=== PATIENT | male | born 1965 ===

== ENCOUNTER 2018-12-17 12:46 | Observation (INO) | payer OTHER ==
[2018-12-17] MEDS ORDERED: Sodium Chloride 0.9% 2.5 ML Syringe FLUSH PRN (13:02)
[2018-12-17] MEDS ORDERED: Sodium Chloride 0.9% 10 ML Syringe FLUSH PRN (13:02)
--- NOTE | 2018-12-17 13:09 | EDM.PDOC ---
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 Patient denies numbness weakness incontinence or retention of bowel or bladder patient does has history of hypertension and states he has had back problems since his youth but has been pretty stable over last several years Review of systems: As per history of present illness and below otherwise all systems reviewed and negative. Past medical history: As per history of present illness and as reviewed below otherwise noncontributory. Surgical history: As per history of present illness and as reviewed below otherwise noncontributory. Social history: No reported history of drug or alcohol abuse. Family history: As per history of present illness and as reviewed below otherwise noncontributory. Physical exam: HEENT: Atraumatic, normocephalic, pupils reactive, negative for conjunctival pallor or scleral icterus, mucous membranes moist, throat clear, neck supple, nontender, trachea midline. Lungs: Clear to auscultation, breath sounds equal bilaterally, chest nontender. Heart: S1S2, regular, negative for clicks, rubs, or JVD. Abdomen: Soft, nondistended, nontender. Negative for masses or hepatosplenomegaly. Negative for costovertebral tenderness. Pelvis: Stable nontender. Genitourinary: Deferred. Rectal: Deferred. Extremities: Atraumatic, negative for cords or calf pain. Neurovascular unremarkable. Neuro: Awake, alert, oriented. Cranial nerves II through XII unremarkable. Cerebellum unremarkable. Motor and sensory unremarkable throughout. Exam nonfocal. Back: Patient has no vertebral body tenderness some mild paravertebral tenderness at the level of lumbar spine motor and sensory are normal Diagnostics: CBC CMP troponin PT/INR UA EKG CT chest abdomen pelvis with thoracic and lumbar reconstruction Therapeutics: IV O2 monitor Impression: #1 dizziness #2 back pain #3 bigeminy #4hypertension Definitive disposition and diagnosis as appropriate pending reevaluation and review of above. low back Pain Score (Numeric/FACES): 9 - Related Data Allergies Allergy/AdvReac Type Severity Reaction Status Date / Time sulfamethoxazole Allergy Airway Verified 12/17/18 13:02 [From ] Tightness trimethoprim [From ] Allergy Airway Verified 12/17/18 13:02 Tightness Home Meds: Home Meds Adalimumab [Humira] 1 injection SQ ASDIRECTED 12/17/18 [History] Albuterol [Ventolin HFA] 2 puff INH ASDIRECTED PRN 12/17/18 [History] Felodipine [Felodipine ER] 10 mg PO DAILY 12/17/18 [History] Folic Acid 1 mg PO DAILY 12/17/18 [History] Ibuprofen [Ibu] 800 mg PO ASDIRECTED PRN 12/17/18 [History] Lisinopril 20 mg PO DAILY 12/17/18 [History] Methotrexate 8 tab PO WEEKLY 12/17/18 [History] Ranitidine HCl [Ranitidine] 150 mg PO BID 12/17/18 [History] metFORMIN HCl [Metformin HCl ER] 2 tab PO BID 12/17/18 [History] ED ROS GENERAL - Review of Systems Review Of Systems: ROS reveals no pertinent complaints other than HPI. ED EXAM, GENERAL - Physical Exam Exam: See Below (See dictation) Course - Vital Signs Last Recorded V/S: Last Vital Signs Temp 36.1 C 12/17/18 12:52 Pulse 67 12/17/18 16:35 Resp 18 12/17/18 16:35 BP 159/102 H 12/17/18 14:21 Pulse Ox 95 12/17/18 16:35 - Orders/Labs/Meds Orders: Active Orders 24 hr Category Date Time Status Cardiac Monitoring [RC] . DIRECTED Care 12/17/18 13:02 Active EKG 12 Lead [EKG Documentation Completion] [RC] STAT Care 12/17/18 16:28 Active EKG Documentation Completion [RC] STAT Care 12/17/18 13:02 Active Oxygen Therapy, ED [RC] ASDIRECTED Care 12/17/18 13:02 Active Pulse Oximetry [RC] ASDIRECTED Care 12/17/18 13:02 Active Sodium Chloride 0.9% [Saline Flush] Med 12/17/18 13:02 Active 10 ml FLUSH ASDIRECTED PRN Sodium Chloride 0.9% [Saline Flush] Med 12/17/18 13:02 Active 2.5 ml FLUSH ASDIRECTED PRN Saline Lock Insert [OM.PC] Stat Oth 12/17/18 13:02 Ordered Medication Orders Sodium Chloride (Saline Flush) 10 ml FLUSH ASDIRECTED PRN PRN Reason: Keep Vein Open Last Admin: 12/17/18 14:13 Dose: 10 ml Sodium Chloride (Saline Flush) 2.5 ml FLUSH ASDIRECTED PRN PRN Reason: Keep Vein Open Last Admin: 12/17/18 14:13 Dose: 2.5 ml Labs: Laboratory Tests 12/17/18 12/17/18 12/17/18 Range/Units 13:05 13:05 13:05 WBC 8.56 (4.0-11.0) K/uL RBC 5.10 (4.50-5.90) M/uL Hgb 16.0 (13.0-17.0) g/dL Hct 47.9 (38.0-50.0) % MCV 93.9 (80.0-98.0) fL MCH 31.4 (27.0-32.0) pg MCHC 33.4 (31.0-37.0) g/dL RDW Std Deviation 52.4 (28.0-62.0) fl RDW Coeff of Beau 15 (11.0-15.0) % Plt Count 198 (150-400) K/uL MPV 11.30 (7.40-12.00) fL Neut % (Auto) 68.6 (48.0-80.0) % Lymph % (Auto) 20.1 (16.0-40.0) % [place] % (Auto) 7.6 (0.0-15.0) % Eos % (Auto) 2.8 (0.0-7.0) % Baso % (Auto) 0.9 (0.0-1.5) % Neut # (Auto) 5.9 H (1.4-5.7) K/uL Lymph # (Auto) 1.7 (0.6-2.4) K/uL [place] # (Auto) 0.7 (0.0-0.8) K/uL Eos # (Auto) 0.2 (0.0-0.7) K/uL Baso # (Auto) 0.1 (0.0-0.1) K/uL Nucleated RBC % 0.0 /100WBC Nucleated RBCs # 0 K/uL INR 1.02 Sodium 140 (136-148) mmol/L Potassium 4.0 (3.5-5.1) mmol/L Chloride 104 (98-107) mmol/L Carbon Dioxide 26.3 (21.0-32.0) mmol/L BUN 20 H (7.0-18.0) mg/dL Creatinine 1.3 (0.8-1.3) mg/dL Est Cr Clr Drug Dosing 78.82 mL/min Estimated GFR (MDRD) 57.3 ml/min Glucose 149 H (74-106) mg/dL Calcium 9.3 (8.5-10.1) mg/dL Total Bilirubin 0.6 (0.2-1.0) mg/dL AST 37 (15-37) IU/L ALT 67 H (14-63) IU/L Alkaline Phosphatase 77 (46-116) U/L Troponin I < 0.050 (0.000-0.056) ng/mL Total Protein 8.4 H (6.4-8.2) g/dL Albumin 3.8 (3.4-5.0) g/dL Globulin 4.6 H (2.6-4.0) g/dL Albumin/Globulin Ratio 0.8 L (0.9-1.6) Urine Color Urine Appearance Urine pH (5.0-8.0) Ur Specific [place] (1.001-1.035) Urine Protein (NEGATIVE) mg/dL Urine Glucose (UA) (NEGATIVE) mg/dL Urine Ketones (NEGATIVE) mg/dL Urine Occult Blood (NEGATIVE) Urine Nitrite (NEGATIVE) Urine Bilirubin (NEGATIVE) Urine Urobilinogen (<2.0) EU/dL Ur Leukocyte Esterase (NEGATIVE) Urine RBC (0-2/HPF) Urine WBC (0-5/HPF) Ur Epithelial Cells (NONE-FEW) Urine Bacteria (NEGATIVE) 12/17/18 Range/Units 13:43 WBC (4.0-11.0) K/uL RBC (4.50-5.90) M/uL Hgb (13.0-17.0) g/dL Hct (38.0-50.0) % MCV (80.0-98.0) fL MCH (27.0-32.0) pg MCHC (31.0-37.0) g/dL RDW Std Deviation (28.0-62.0) fl RDW Coeff of Beau (11.0-15.0) % Plt Count (150-400) K/uL MPV (7.40-12.00) fL Neut % (Auto) (48.0-80.0) % Lymph % (Auto) (16.0-40.0) % [place] % (Auto) (0.0-15.0) % Eos % (Auto) (0.0-7.0) % Baso % (Auto) (0.0-1.5) % Neut # (Auto) (1.4-5.7) K/uL Lymph # (Auto) (0.6-2.4) K/uL [place] # (Auto) (0.0-0.8) K/uL Eos # (Auto) (0.0-0.7) K/uL Baso # (Auto) (0.0-0.1) K/uL Nucleated RBC % /100WBC Nucleated RBCs # K/uL INR Sodium (136-148) mmol/L Potassium (3.5-5.1) mmol/L Chloride (98-107) mmol/L Carbon Dioxide (21.0-32.0) mmol/L BUN (7.0-18.0) mg/dL Creatinine (0.8-1.3) mg/dL Est Cr Clr Drug Dosing mL/min Estimated GFR (MDRD) ml/min Glucose (74-106) mg/dL Calcium (8.5-10.1) mg/dL Total Bilirubin (0.2-1.0) mg/dL AST (15-37) IU/L ALT (14-63) IU/L Alkaline Phosphatase (46-116) U/L Troponin I (0.000-0.056) ng/mL Total Protein (6.4-8.2) g/dL Albumin (3.4-5.0) g/dL Globulin (2.6-4.0) g/dL Albumin/Globulin Ratio (0.9-1.6) Urine Color YELLOW Urine Appearance CLEAR Urine pH 6.0 (5.0-8.0) Ur Specific [place] 1.020 (1.001-1.035) Urine Protein 30 H (NEGATIVE) mg/dL Urine Glucose (UA) NEGATIVE (NEGATIVE) mg/dL Urine Ketones NEGATIVE (NEGATIVE) mg/dL Urine Occult Blood MODERATE H (NEGATIVE) Urine Nitrite NEGATIVE (NEGATIVE) Urine Bilirubin NEGATIVE (NEGATIVE) Urine Urobilinogen 0.2 (<2.0) EU/dL Ur Leukocyte Esterase NEGATIVE (NEGATIVE) Urine RBC 2-5 (0-2/HPF) Urine WBC 0-1 (0-5/HPF) Ur Epithelial Cells RARE (NONE-FEW) Urine Bacteria RARE (NEGATIVE) Meds: Medications Generic Name Dose Route Start Last Admin Trade Name Freq PRN Reason Stop Dose Admin Sodium Chloride 10 ml 12/17/18 13:02 12/17/18 14:13 Saline Flush FLUSH 10 ml ASDIRECTED PRN Administration Keep Vein Open Sodium Chloride 2.5 ml 12/17/18 13:02 12/17/18 14:13 Saline Flush FLUSH 2.5 ml ASDIRECTED PRN Administration Keep Vein Open Discontinued Medications Generic Name Dose Route Start Last Admin Trade Name Freq PRN Reason Stop Dose Admin Iopamidol 100 ml 12/17/18 14:21 12/17/18 14:47 Isovue Multipack-370 (76%) IVPUSH 12/17/18 14:22 100 ml ONETIME STA Administration Ketorolac Tromethamine Confirm 12/17/18 16:02 12/17/18 16:08 Toradol Administered 12/17/18 16:03 Not Given Dose 30 mg .ROUTE .STK-MED ONE Ketorolac Tromethamine 30 mg 12/17/18 16:04 12/17/18 16:07 Toradol IVPUSH 12/17/18 16:05 30 mg ONETIME ONE Administration Morphine Sulfate 2 mg 12/17/18 14:00 12/17/18 14:17 Morphine IVPUSH 12/17/18 14:01 2 mg ONETIME ONE Administration Morphine Sulfate 4 mg 12/17/18 15:55 12/17/18 15:59 Morphine IVPUSH 12/17/18 15:56 4 mg ONETIME ONE Administration Morphine Sulfate Confirm 12/17/18 15:55 12/17/18 16:00 Morphine Administered 12/17/18 15:56 Not Given Dose 4 mg .ROUTE .STK-MED ONE Ondansetron HCl 4 mg 12/17/18 14:00 12/17/18 14:13 Zofran IVPUSH 12/17/18 14:01 4 mg ONETIME ONE Administration Departure - Departure Time of Disposition: 16:42 Disposition: Refer to Observation Condition: Good Clinical Impression: Dizziness, Back pain, Bigeminy, History of hypertension - Discharge Information Referrals: PCP,Not In Area [Primary Care Provider] - Forms: ED Department Discharge - My Orders Last 24 Hours: My Active Orders 12/17/18 13:02 Cardiac Monitoring [RC] . DIRECTED EKG Documentation Completion [RC] STAT Oxygen Therapy, ED [RC] ASDIRECTED Pulse Oximetry [RC] ASDIRECTED Sodium Chloride 0.9% [Saline Flush] 10 ml FLUSH ASDIRECTED PRN Sodium Chloride 0.9% [Saline Flush] 2.5 ml FLUSH ASDIRECTED PRN Saline Lock Insert [OM.PC] Stat 12/17/18 16:28 EKG 12 Lead [EKG Documentation Completion] [RC] STAT - Assessment/Plan Last 24 Hours: My Active Orders 12/17/18 13:02 Cardiac Monitoring [RC] . DIRECTED EKG Documentation Completion [RC] STAT Oxygen Therapy, ED [RC] ASDIRECTED Pulse Oximetry [RC] ASDIRECTED Sodium Chloride 0.9% [Saline Flush] 10 ml FLUSH ASDIRECTED PRN Sodium Chloride 0.9% [Saline Flush] 2.5 ml FLUSH ASDIRECTED PRN Saline Lock Insert [OM.PC] Stat 12/17/18 16:28 EKG 12 Lead [EKG Documentation Completion] [RC] STAT
[2018-12-17] MEDS ORDERED: Morphine 2 MG/ML Syringe IVPUSH ONE (14:00)
[2018-12-17] MEDS ORDERED: Ondansetron 4 MG/2 ML SDV IVPUSH ONE (14:00)
[2018-12-17 14:03] LABS: BLOOD UREA NITROGEN,BUN 20 mg/dL (7.0-18.0); CARBON DIOXIDE,CO2 26.3 mmol/L (21.0-32.0); CHLORIDE,CL 104 mmol/L (98-107); GLUCOSE RANDOM 149 mg/dL (74-106); SODIUM,NA 140 mmol/L (136-148)
[2018-12-17] MEDS ORDERED: Iopamidol 755 MG/ML 500 ML Multipack Bottle IVPUSH STA (14:21)
--- NOTE | 2018-12-17 15:48 | CT ---
CT abdomen and pelvis Technique: Multiple axial sections were obtained from above the dome of the diaphragm inferiorly through the pubic symphysis. Intravenous contrast was utilized. No oral contrast has been given. Comparison: No prior CT abdomen or pelvis exam is available. Findings: Visualized lung bases show nothing acute. Fatty infiltration is noted within the liver. Cyst is noted within the right lobe of the liver measuring 2.0 cm. No other focal abnormality is appreciated within the liver. Spleen measures at the upper limits of normal at 13.9 cm. Adrenal glands show no nodule. Pancreas shows no discrete abnormality. Gallbladder contains no calcified gallstones. Cysts noted within both kidneys, more numerous on the left side. Largest cyst on the left side measures 5.8 cm. Cyst on the right side measures 2.9 cm. Aorta shows no aneurysmal with mild atherosclerotic calcification. Atherosclerotic calcification continues into the iliac vessels. No retroperitoneal adenopathy or mesenteric abnormalities are seen. No pelvic mass or adenopathy is seen. No free fluid or inflammatory change is seen. Impression: 1. Fatty infiltration within the liver. Incidental liver cyst as well as renal cysts. 2. Spleen size at the upper limits of normal. 3. Nothing acute is appreciated on CT study of the abdomen and pelvis. Diagnostic code #2 MTDD
--- NOTE | 2018-12-17 15:49 | CT ---
CT chest Technique: Multiple axial sections through the chest are obtained. Intravenous contrast was utilized. Comparison: No prior chest x-ray. Findings: Aorta shows no aneurysm. Pulmonary arteries appear within normal limits. Coronary arteries show no abnormal calcifications. Mediastinum and hilar regions show no adenopathy. No pericardial thickening is seen. Lungs are clear with no acute parenchymal change. No pleural effusions or pneumothorax is seen. Scattered degenerative endplate spurring is noted within the spine. No discrete rib fracture is seen. Lateral reconstructed view showing the sternum appear intact. Impression: Nothing acute is appreciated on CT study of the chest. Diagnostic code #1 MTDD
[2018-12-17] MEDS ORDERED: Morphine 4 MG/ML Syringe ONE (15:55)
[2018-12-17] MEDS ORDERED: Morphine 4 MG/ML Syringe IVPUSH ONE (15:55)
--- NOTE | 2018-12-17 15:55 | CT ---
CT lumbar spine Technique: Multiple axial sections through the lumbar spine were obtained. Comparison: No prior lumbar spine imaging. Findings: Vertebral body heights and disc spaces are maintained. Scattered endplate osteophytes are seen. Vertebral bodies and posterior arches are intact with no fracture being seen. Minimal circumferential disc bulge is noted at L3-L4. Disc at L4-L5 has a planar posterior margin. Other disks are maintained. No traumatic disc herniation is seen. No bony central or bony neural foraminal stenosis is seen. Impression: 1. Slight scattered endplate osteophytes. Minimal disc bulging. 2. No acute bony abnormality is seen. No disc herniation is noted. No central canal stenosis or neural foraminal stenosis is seen. Diagnostic code #3 MTDD
--- NOTE | 2018-12-17 15:57 | CT ---
CT thoracic spine Technique: Multiple axial sections were obtained through the thoracic spine. Reconstructed coronal and sagittal images were obtained. Findings: Scattered degenerative endplate spurring is noted. Slight anterior wedge deformities are noted within the lower thoracic spine. These are most likely old as I do not see a definite acute fracture line. No bony central lower bony neural foraminal stenosis is seen. No abnormal subluxation is seen. Impression: 1. Mild anterior wedging of several lower thoracic vertebral bodies which appear to be old as no acute fracture line is seen. 2. Degenerative endplate osteophytes are present throughout the thoracic spine. 3. Nothing acute is appreciated. Diagnostic code #2 MTDD
[2018-12-17] MEDS ORDERED: Ketorolac 30 MG/ML SDV ONE (16:02)
[2018-12-17] MEDS ORDERED: Ketorolac 30 MG/ML SDV IVPUSH ONE (16:04)
[2018-12-17] MEDS ORDERED: Albuterol 8 GM Inhaler INH PRN (17:28)
[2018-12-17] MEDS ORDERED: Ibuprofen 800 MG Tab PO PRN (17:28)
--- NOTE | 2018-12-17 17:35 | PCM.HP.2 ---
H&P History of Present Illness - General Date of Service: 12/17/18 Admit Problem/Dx: Admission Diagnosis/Problem Admission Diagnosis/Problem Dizziness - History of Present Illness Initial Comments - Free Text/Narative: 53 yo male with pmh of DM and rheumatoid arthritis who presents with concerns of lower back pain. The back pain occured when he woke up this morning around 4 am. Patient reported the urge to defecate about every hour and having hard stools. Patient believes his hard stools were due to not drinking as much water yesterday. 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 He reports he was in rougher ride this week which may have contributed to his back pain. He describes his back pain as to the left of his spine. 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 In the ER he was noted to be in bigeminy but then converted to normal sinus. Patient reports a history of a slow arrhythmia which he believes was induced by energy drinks. Two days ago he reported some lightheadedness. He denies any fevers, shortness of breath or chest pain. CT scan of the chest abdomen in the ED were normal. ED provider referred to admission due to report dizziness and history of arrhythmia. low back Pain Score (Numeric/FACES): 9 - Related Data Allergies/Adverse Reactions: Allergies Allergy/AdvReac Type Severity Reaction Status Date / Time sulfamethoxazole Allergy Hives Verified 12/17/18 19:27 [From ] trimethoprim [From ] Allergy Burning Verified 12/17/18 19:27 Home Medications: Home Meds Adalimumab [Humira] 1 injection SQ ASDIRECTED 12/17/18 [History] Albuterol [Ventolin HFA] 2 puff INH ASDIRECTED PRN 12/17/18 [History] Felodipine [Felodipine ER] 10 mg PO DAILY 12/17/18 [History] Folic Acid 1 mg PO DAILY 12/17/18 [History] Ibuprofen [Ibu] 800 mg PO ASDIRECTED PRN 12/17/18 [History] Lisinopril 20 mg PO DAILY 12/17/18 [History] Methotrexate 20 mg PO WE@0800 12/17/18 [History] Ranitidine HCl [Ranitidine] 150 mg PO BID 12/17/18 [History] metFORMIN HCl [Metformin HCl ER] 2 tab PO BID 12/17/18 [History] Past Medical History Cardiovascular History: Reports: Hypertension Respiratory History: Reports: Other (See Below) Other Respiratory History: flare up of SOB with allergies Gastrointestinal History: Reports: GERD Musculoskeletal History: Reports: Back Pain, Chronic Endocrine/Metabolic History: Reports: Diabetes, Type II Other Endocrine/Metabolic History: states he is pre diabetic but does take metformin 1000 bid Other Immunologic History: rheumatoid arthritis - Infectious Disease History Infectious Disease History: Reports: Chicken Pox, Mumps Social & Family History - Tobacco Use Smoking Status *Q: Never Smoker - Caffeine Use Caffeine Use: Reports: Soda - Recreational Drug Use Recreational Drug Use: No H&P Review of Systems - Review of Systems: Review Of Systems: ROS reveals no pertinent complaints other than HPI. Exam - Exam Exam: See Below - Vital Signs Vital Signs: Last Vital Signs Temp 36.1 C 12/17/18 12:52 Pulse 67 12/17/18 16:35 Resp 18 12/17/18 16:35 BP 159/102 H 12/17/18 14:21 Pulse Ox 95 12/17/18 16:35 Weight: 133.7 kg - Exam General: Alert, Oriented Lungs: Clear to Auscultation, Normal Respiratory Effort Cardiovascular: Regular Rate, Regular Rhythm GI/Abdominal Exam: Soft, Non-Tender - Patient Data Lab Results Last 24 hrs: Laboratory Results - last 24 hr 12/17/18 12/17/18 12/17/18 Range/Units 13:05 13:05 13:05 WBC 8.56 (4.0-11.0) K/uL RBC 5.10 (4.50-5.90) M/uL Hgb 16.0 (13.0-17.0) g/dL Hct 47.9 (38.0-50.0) % MCV 93.9 (80.0-98.0) fL MCH 31.4 (27.0-32.0) pg MCHC 33.4 (31.0-37.0) g/dL RDW Std Deviation 52.4 (28.0-62.0) fl RDW Coeff of Beau 15 (11.0-15.0) % Plt Count 198 (150-400) K/uL MPV 11.30 (7.40-12.00) fL Neut % (Auto) 68.6 (48.0-80.0) % Lymph % (Auto) 20.1 (16.0-40.0) % [place] % (Auto) 7.6 (0.0-15.0) % Eos % (Auto) 2.8 (0.0-7.0) % Baso % (Auto) 0.9 (0.0-1.5) % Neut # (Auto) 5.9 H (1.4-5.7) K/uL Lymph # (Auto) 1.7 (0.6-2.4) K/uL [place] # (Auto) 0.7 (0.0-0.8) K/uL Eos # (Auto) 0.2 (0.0-0.7) K/uL Baso # (Auto) 0.1 (0.0-0.1) K/uL Nucleated RBC % 0.0 /100WBC Nucleated RBCs # 0 K/uL INR 1.02 Sodium 140 (136-148) mmol/L Potassium 4.0 (3.5-5.1) mmol/L Chloride 104 (98-107) mmol/L Carbon Dioxide 26.3 (21.0-32.0) mmol/L BUN 20 H (7.0-18.0) mg/dL Creatinine 1.3 (0.8-1.3) mg/dL Est Cr Clr Drug Dosing 78.82 mL/min Estimated GFR (MDRD) 57.3 ml/min Glucose 149 H (74-106) mg/dL Calcium 9.3 (8.5-10.1) mg/dL Magnesium (1.8-2.4) mg/dL Total Bilirubin 0.6 (0.2-1.0) mg/dL AST 37 (15-37) IU/L ALT 67 H (14-63) IU/L Alkaline Phosphatase 77 (46-116) U/L Troponin I < 0.050 (0.000-0.056) ng/mL Total Protein 8.4 H (6.4-8.2) g/dL Albumin 3.8 (3.4-5.0) g/dL Globulin 4.6 H (2.6-4.0) g/dL Albumin/Globulin Ratio 0.8 L (0.9-1.6) Urine Color Urine Appearance Urine pH (5.0-8.0) Ur Specific [place] (1.001-1.035) Urine Protein (NEGATIVE) mg/dL Urine Glucose (UA) (NEGATIVE) mg/dL Urine Ketones (NEGATIVE) mg/dL Urine Occult Blood (NEGATIVE) Urine Nitrite (NEGATIVE) Urine Bilirubin (NEGATIVE) Urine Urobilinogen (<2.0) EU/dL Ur Leukocyte Esterase (NEGATIVE) Urine RBC (0-2/HPF) Urine WBC (0-5/HPF) Ur Epithelial Cells (NONE-FEW) Urine Bacteria (NEGATIVE) 12/17/18 12/17/18 Range/Units 13:05 13:43 WBC (4.0-11.0) K/uL RBC (4.50-5.90) M/uL Hgb (13.0-17.0) g/dL Hct (38.0-50.0) % MCV (80.0-98.0) fL MCH (27.0-32.0) pg MCHC (31.0-37.0) g/dL RDW Std Deviation (28.0-62.0) fl RDW Coeff of [place] (11.0-15.0) % Plt Count (150-400) K/uL MPV (7.40-12.00) fL Neut % (Auto) (48.0-80.0) % Lymph % (Auto) (16.0-40.0) % [place] % (Auto) (0.0-15.0) % Eos % (Auto) (0.0-7.0) % Baso % (Auto) (0.0-1.5) % Neut # (Auto) (1.4-5.7) K/uL Lymph # (Auto) (0.6-2.4) K/uL [place] # (Auto) (0.0-0.8) K/uL Eos # (Auto) (0.0-0.7) K/uL Baso # (Auto) (0.0-0.1) K/uL Nucleated RBC % /100WBC Nucleated RBCs # K/uL INR Sodium (136-148) mmol/L Potassium (3.5-5.1) mmol/L Chloride (98-107) mmol/L Carbon Dioxide (21.0-32.0) mmol/L BUN (7.0-18.0) mg/dL Creatinine (0.8-1.3) mg/dL Est Cr Clr Drug Dosing mL/min Estimated GFR (MDRD) ml/min Glucose (74-106) mg/dL Calcium (8.5-10.1) mg/dL Magnesium 2.2 (1.8-2.4) mg/dL Total Bilirubin (0.2-1.0) mg/dL AST (15-37) IU/L ALT (14-63) IU/L Alkaline Phosphatase (46-116) U/L Troponin I (0.000-0.056) ng/mL Total Protein (6.4-8.2) g/dL Albumin (3.4-5.0) g/dL Globulin (2.6-4.0) g/dL Albumin/Globulin Ratio (0.9-1.6) Urine Color YELLOW Urine Appearance CLEAR Urine pH 6.0 (5.0-8.0) Ur Specific [place] 1.020 (1.001-1.035) Urine Protein 30 H (NEGATIVE) mg/dL Urine Glucose (UA) NEGATIVE (NEGATIVE) mg/dL Urine Ketones NEGATIVE (NEGATIVE) mg/dL Urine Occult Blood MODERATE H (NEGATIVE) Urine Nitrite NEGATIVE (NEGATIVE) Urine Bilirubin NEGATIVE (NEGATIVE) Urine Urobilinogen 0.2 (<2.0) EU/dL Ur Leukocyte Esterase NEGATIVE (NEGATIVE) Urine RBC 2-5 (0-2/HPF) Urine WBC 0-1 (0-5/HPF) Ur Epithelial Cells RARE (NONE-FEW) Urine Bacteria RARE (NEGATIVE) Result Diagrams: 12/18/18 05:49 12/18/18 05:49 Problem List Initiated/Reviewed/Updated: Yes Orders Last 24hrs: Active Orders 24 hr Category Date Time Status Patient Status [ADT] Stat ADT 12/17/18 16:43 Active Cardiac Monitoring [RC] . DIRECTED Care 12/17/18 13:02 Active EKG 12 Lead [EKG Documentation Completion] [RC] STAT Care 12/17/18 16:28 Active EKG Documentation Completion [RC] STAT Care 12/17/18 13:02 Active Oxygen Therapy, ED [RC] ASDIRECTED Care 12/17/18 13:02 Active Pulse Oximetry [RC] ASDIRECTED Care 12/17/18 13:02 Active Albuterol [Ventolin HFA] Med 12/17/18 17:28 Ordered 2 puff INH ASDIRECTED PRN Felodipine [Felodipine ER] Med 12/18/18 09:00 Ordered 10 mg PO DAILY Folic Acid Med 12/18/18 09:00 Ordered 1 mg PO DAILY Ibuprofen [Motrin] Med 12/17/18 17:28 Ordered 800 mg PO ASDIRECTED PRN Insulin Aspart [NovoLOG] Med 12/18/18 07:30 Ordered See Protocol SUBCUT TIDAC Lisinopril Med 12/18/18 09:00 Ordered 20 mg PO DAILY Methotrexate Med 12/17/18 17:30 Ordered 20 mg PO WEEKLY Ranitidine HCl Med 12/17/18 21:00 Ordered 150 mg PO BID Sodium Chloride 0.9% [Saline Flush] Med 12/17/18 13:02 Active 10 ml FLUSH ASDIRECTED PRN Sodium Chloride 0.9% [Saline Flush] Med 12/17/18 13:02 Active 2.5 ml FLUSH ASDIRECTED PRN metFORMIN [Glucophage XR] Med 12/17/18 21:00 Ordered 1,000 mg PO BID Saline Lock Insert [OM.PC] Stat Oth 12/17/18 13:02 Ordered Medication Orders Albuterol (Ventolin Hfa) gm INH ASDIRECTED PRN PRN Reason: Shortness of Breath Felodipine (Felodipine Er) 10 mg PO DAILY YAHAIRA Folic Acid (Folic Acid) 1 mg PO DAILY YAHAIRA Ibuprofen (Motrin) 800 mg PO ASDIRECTED PRN PRN Reason: Pain Metformin HCl (Glucophage Xr) 1,000 mg PO BID YAHAIRA Methotrexate (Methotrexate) 20 mg PO WEEKLY YAHAIRA Non-Formulary Medication (Lisinopril) 20 mg PO DAILY YAHAIRA Non-Formulary Medication (Ranitidine Hcl) 150 mg PO BID YAHAIRA Sodium Chloride (Saline Flush) 10 ml FLUSH ASDIRECTED PRN PRN Reason: Keep Vein Open Last Admin: 12/17/18 14:13 Dose: 10 ml Sodium Chloride (Saline Flush) 2.5 ml FLUSH ASDIRECTED PRN PRN Reason: Keep Vein Open Last Admin: 12/17/18 14:13 Dose: 2.5 ml Assessment/Plan Comment:: 53 yo male who presented to ED with complaints of back pain found to be bigeminy but now in normal sinus. Will monitor on telemetry overnight.
[2018-12-17] MEDS ORDERED: Ondansetron 4 MG/2 ML SDV IVPUSH PRN (18:46)
[2018-12-17] MEDS ORDERED: Morphine 2 MG/ML Syringe IVPUSH PRN (18:47)
[2018-12-17] MEDS: metFORMIN 500 MG Tab.ER PO SCH (20:56)
[2018-12-17] MEDS ORDERED: Non-Formulary Medication 1 Each (Ranitidine Hcl 150 MG) PO SCH (21:00)
[2018-12-18 06:10] LABS: CARBON DIOXIDE,CO2 28.4 mmol/L (21.0-32.0); POTASSIUM,K 3.8 mmol/L (3.5-5.1)
[2018-12-18] MEDS ORDERED: Famotidine 20 MG Tab PO SCH (07:19)
[2018-12-18] MEDS ORDERED: Methotrexate 2.5 MG Tab PO SCH (07:30)
[2018-12-18] MEDS ORDERED: Ibuprofen 800 MG Tab PO PRN (07:30)
[2018-12-18] MEDS: Insulin Aspart 100 Units/ML 3 ML Pen SUBCUT SCH ×2 (07:41→13:40)
[2018-12-18] MEDS: metFORMIN 500 MG Tab.ER PO SCH (08:12)
[2018-12-18] MEDS ORDERED: Folic Acid 1 MG Tab PO SCH (09:00)
[2018-12-18] MEDS ORDERED: Lisinopril 10 MG Tab PO SCH (09:00)
--- NOTE | 2018-12-18 12:13 | PCM.DCSUM1 ---
Discharge Summary - Discharge Data Discharge Date: 12/18/18 Discharge Disposition: Home, Self-Care 01 Condition: Good - Referral to Home Health Primary Care Physician: PCP Not In Area - Patient Summary/Data Hospital Course: 53 yo male with past medical history of DM and rheumatoid arthritis who presents with one day history of lower back pain. The patient was noted to be in bigeminy as well as bradycardic with HR in the 50s in the ED. Patient did report dizziness two days before admission. He was monitored overnight and reported much improvement in his back pain. On telemetry he did have episodes of bigeminy as well as sinus marcell that were asymptomatic. Patient was discharged home to have follow up with Dr. Zepeda. A Zio patch was ordered. - Discharge Plan Home Medications: Home Meds Adalimumab [Humira] 1 injection SQ ASDIRECTED 12/17/18 [History] Albuterol [Ventolin HFA] 2 puff INH ASDIRECTED PRN 12/17/18 [History] Felodipine [Felodipine ER] 10 mg PO DAILY 12/17/18 [History] Folic Acid 1 mg PO DAILY 12/17/18 [History] Ibuprofen [Ibu] 800 mg PO ASDIRECTED PRN 12/17/18 [History] Lisinopril 20 mg PO DAILY 12/17/18 [History] Methotrexate 20 mg PO WE@0800 12/17/18 [History] Ranitidine HCl [Ranitidine] 150 mg PO BID 12/17/18 [History] metFORMIN HCl [Metformin HCl ER] 2 tab PO BID 12/17/18 [History] Referrals: [facility] [Outside] Trey Rice MD [Resident] - 12/25/18 1:30 pm - Discharge Summary/Plan Comment DC Time >30 min.: No - Patient Data Vitals - Most Recent: Last Vital Signs Temp 36.6 C 12/18/18 07:43 Pulse 50 L 12/18/18 07:43 Resp 17 12/18/18 07:43 BP 148/82 H 12/18/18 08:12 Pulse Ox 93 L 12/18/18 07:43 Weight - Most Recent: 133.7 kg I&O - Last 24 hours: Intake & Output 12/17/18 12/18/18 12/18/18 22:59 06:59 14:59 Intake Total 350 Output Total 450 Balance -100 Lab Results - Last 24 hrs: Laboratory Results - last 24 hr 12/17/18 12/17/18 12/17/18 Range/Units 13:05 13:05 13:05 WBC 8.56 (4.0-11.0) K/uL RBC 5.10 (4.50-5.90) M/uL Hgb 16.0 (13.0-17.0) g/dL Hct 47.9 (38.0-50.0) % MCV 93.9 (80.0-98.0) fL MCH 31.4 (27.0-32.0) pg MCHC 33.4 (31.0-37.0) g/dL RDW Std Deviation 52.4 (28.0-62.0) fl RDW Coeff of Beau 15 (11.0-15.0) % Plt Count 198 (150-400) K/uL MPV 11.30 (7.40-12.00) fL Neut % (Auto) 68.6 (48.0-80.0) % Lymph % (Auto) 20.1 (16.0-40.0) % [place] % (Auto) 7.6 (0.0-15.0) % Eos % (Auto) 2.8 (0.0-7.0) % Baso % (Auto) 0.9 (0.0-1.5) % Neut # (Auto) 5.9 H (1.4-5.7) K/uL Lymph # (Auto) 1.7 (0.6-2.4) K/uL [place] # (Auto) 0.7 (0.0-0.8) K/uL Eos # (Auto) 0.2 (0.0-0.7) K/uL Baso # (Auto) 0.1 (0.0-0.1) K/uL Nucleated RBC % 0.0 /100WBC Nucleated RBCs # 0 K/uL INR 1.02 Sodium 140 (136-148) mmol/L Potassium 4.0 (3.5-5.1) mmol/L Chloride 104 (98-107) mmol/L Carbon Dioxide 26.3 (21.0-32.0) mmol/L BUN 20 H (7.0-18.0) mg/dL Creatinine 1.3 (0.8-1.3) mg/dL Est Cr Clr Drug Dosing 78.82 mL/min Estimated GFR (MDRD) 57.3 ml/min Glucose 149 H (74-106) mg/dL POC Glucose (60-110) mg/dL Calcium 9.3 (8.5-10.1) mg/dL Magnesium (1.8-2.4) mg/dL Total Bilirubin 0.6 (0.2-1.0) mg/dL AST 37 (15-37) IU/L ALT 67 H (14-63) IU/L Alkaline Phosphatase 77 (46-116) U/L Troponin I < 0.050 (0.000-0.056) ng/mL Total Protein 8.4 H (6.4-8.2) g/dL Albumin 3.8 (3.4-5.0) g/dL Globulin 4.6 H (2.6-4.0) g/dL Albumin/Globulin Ratio 0.8 L (0.9-1.6) Urine Color Urine Appearance Urine pH (5.0-8.0) Ur Specific [place] (1.001-1.035) Urine Protein (NEGATIVE) mg/dL Urine Glucose (UA) (NEGATIVE) mg/dL Urine Ketones (NEGATIVE) mg/dL Urine Occult Blood (NEGATIVE) Urine Nitrite (NEGATIVE) Urine Bilirubin (NEGATIVE) Urine Urobilinogen (<2.0) EU/dL Ur Leukocyte Esterase (NEGATIVE) Urine RBC (0-2/HPF) Urine WBC (0-5/HPF) Ur Epithelial Cells (NONE-FEW) Urine Bacteria (NEGATIVE) 12/17/18 12/17/18 12/18/18 Range/Units 13:05 13:43 05:49 WBC 8.20 (4.0-11.0) K/uL RBC 4.61 (4.50-5.90) M/uL Hgb 14.4 (13.0-17.0) g/dL Hct 43.9 (38.0-50.0) % MCV 95.2 (80.0-98.0) fL MCH 31.2 (27.0-32.0) pg MCHC 32.8 (31.0-37.0) g/dL RDW Std Deviation 53.5 (28.0-62.0) fl RDW Coeff of Beau 16 H (11.0-15.0) % Plt Count 189 (150-400) K/uL MPV 11.10 (7.40-12.00) fL Neut % (Auto) (48.0-80.0) % Lymph % (Auto) (16.0-40.0) % [place] % (Auto) (0.0-15.0) % Eos % (Auto) (0.0-7.0) % Baso % (Auto) (0.0-1.5) % Neut # (Auto) (1.4-5.7) K/uL Lymph # (Auto) (0.6-2.4) K/uL [place] # (Auto) (0.0-0.8) K/uL Eos # (Auto) (0.0-0.7) K/uL Baso # (Auto) (0.0-0.1) K/uL Nucleated RBC % 0.0 /100WBC Nucleated RBCs # 0 K/uL INR Sodium (136-148) mmol/L Potassium (3.5-5.1) mmol/L Chloride (98-107) mmol/L Carbon Dioxide (21.0-32.0) mmol/L BUN (7.0-18.0) mg/dL Creatinine (0.8-1.3) mg/dL Est Cr Clr Drug Dosing mL/min Estimated GFR (MDRD) ml/min Glucose (74-106) mg/dL POC Glucose (60-110) mg/dL Calcium (8.5-10.1) mg/dL Magnesium 2.2 (1.8-2.4) mg/dL Total Bilirubin (0.2-1.0) mg/dL AST (15-37) IU/L ALT (14-63) IU/L Alkaline Phosphatase (46-116) U/L Troponin I (0.000-0.056) ng/mL Total Protein (6.4-8.2) g/dL Albumin (3.4-5.0) g/dL Globulin (2.6-4.0) g/dL Albumin/Globulin Ratio (0.9-1.6) Urine Color YELLOW Urine Appearance CLEAR Urine pH 6.0 (5.0-8.0) Ur Specific [place] 1.020 (1.001-1.035) Urine Protein 30 H (NEGATIVE) mg/dL Urine Glucose (UA) NEGATIVE (NEGATIVE) mg/dL Urine Ketones NEGATIVE (NEGATIVE) mg/dL Urine Occult Blood MODERATE H (NEGATIVE) Urine Nitrite NEGATIVE (NEGATIVE) Urine Bilirubin NEGATIVE (NEGATIVE) Urine Urobilinogen 0.2 (<2.0) EU/dL Ur Leukocyte Esterase NEGATIVE (NEGATIVE) Urine RBC 2-5 (0-2/HPF) Urine WBC 0-1 (0-5/HPF) Ur Epithelial Cells RARE (NONE-FEW) Urine Bacteria RARE (NEGATIVE) 12/18/18 12/18/18 12/18/18 Range/Units 05:49 06:05 08:23 WBC (4.0-11.0) K/uL RBC (4.50-5.90) M/uL Hgb (13.0-17.0) g/dL Hct (38.0-50.0) % MCV (80.0-98.0) fL MCH (27.0-32.0) pg MCHC (31.0-37.0) g/dL RDW Std Deviation (28.0-62.0) fl RDW Coeff of Beau (11.0-15.0) % Plt Count (150-400) K/uL MPV (7.40-12.00) fL Neut % (Auto) (48.0-80.0) % Lymph % (Auto) (16.0-40.0) % [place] % (Auto) (0.0-15.0) % Eos % (Auto) (0.0-7.0) % Baso % (Auto) (0.0-1.5) % Neut # (Auto) (1.4-5.7) K/uL Lymph # (Auto) (0.6-2.4) K/uL [place] # (Auto) (0.0-0.8) K/uL Eos # (Auto) (0.0-0.7) K/uL Baso # (Auto) (0.0-0.1) K/uL Nucleated RBC % /100WBC Nucleated RBCs # K/uL INR Sodium 143 (136-148) mmol/L Potassium 3.8 (3.5-5.1) mmol/L Chloride 106 (98-107) mmol/L Carbon Dioxide 28.4 (21.0-32.0) mmol/L BUN 20 H (7.0-18.0) mg/dL Creatinine 1.5 H (0.8-1.3) mg/dL Est Cr Clr Drug Dosing 68.31 mL/min Estimated GFR (MDRD) 48.6 ml/min Glucose 109 H (74-106) mg/dL POC Glucose 103 (60-110) mg/dL Calcium 8.6 (8.5-10.1) mg/dL Magnesium 2.2 (1.8-2.4) mg/dL Total Bilirubin (0.2-1.0) mg/dL AST (15-37) IU/L ALT (14-63) IU/L Alkaline Phosphatase (46-116) U/L Troponin I (0.000-0.056) ng/mL Total Protein (6.4-8.2) g/dL Albumin (3.4-5.0) g/dL Globulin (2.6-4.0) g/dL Albumin/Globulin Ratio (0.9-1.6) Urine Color Urine Appearance Urine pH (5.0-8.0) Ur Specific [place] (1.001-1.035) Urine Protein (NEGATIVE) mg/dL Urine Glucose (UA) (NEGATIVE) mg/dL Urine Ketones (NEGATIVE) mg/dL Urine Occult Blood (NEGATIVE) Urine Nitrite (NEGATIVE) Urine Bilirubin (NEGATIVE) Urine Urobilinogen (<2.0) EU/dL Ur Leukocyte Esterase (NEGATIVE) Urine RBC (0-2/HPF) Urine WBC (0-5/HPF) Ur Epithelial Cells (NONE-FEW) Urine Bacteria (NEGATIVE) Med Orders - Current: Current Medications Albuterol (Ventolin Hfa) 0 gm INH Q4HR PRN PRN Reason: Shortness of Breath Famotidine (Pepcid) 20 mg PO BID [facility] Last Admin: 12/18/18 08:12 Dose: 20 mg Felodipine (Felodipine Er) 10 mg PO DAILY [facility] Last Admin: 12/18/18 09:08 Dose: 10 mg Folic Acid (Folic Acid) 1 mg PO DAILY [facility] Last Admin: 12/18/18 08:12 Dose: 1 mg Insulin Aspart (Novolog) 0 unit SUBCUT TIDAC [facility]; Protocol Last Admin: 12/18/18 07:41 Dose: Not Given Lisinopril (Prinivil) 20 mg PO DAILY [facility] Last Admin: 12/18/18 08:12 Dose: 20 mg Metformin HCl (Glucophage Xr) 1,000 mg PO BID [facility] Last Admin: 12/18/18 08:12 Dose: 1,000 mg Methotrexate (Methotrexate) 20 mg PO We@0730 [facility] Last Admin: 12/18/18 08:12 Dose: 20 mg Morphine Sulfate (Morphine) 2 mg IVPUSH Q3H PRN PRN Reason: Pain Last Admin: 12/17/18 19:45 Dose: 2 mg Ondansetron HCl (Zofran) 4 mg IVPUSH Q4H PRN PRN Reason: Nausea Last Admin: 12/17/18 19:00 Dose: 4 mg Sodium Chloride (Saline Flush) 10 ml FLUSH ASDIRECTED PRN PRN Reason: Keep Vein Open Last Admin: 12/17/18 14:13 Dose: 10 ml Sodium Chloride (Saline Flush) 2.5 ml FLUSH ASDIRECTED PRN PRN Reason: Keep Vein Open Last Admin: 12/17/18 14:13 Dose: 2.5 ml Discontinued Medications Ibuprofen (Motrin) 800 mg PO ASDIRECTED PRN PRN Reason: Pain Last Admin: 12/17/18 18:39 Dose: 800 mg Ibuprofen (Motrin) 800 mg PO Q8H PRN PRN Reason: Pain Iopamidol (Isovue Multipack-370 (76%)) 100 ml IVPUSH ONETIME STA Stop: 12/17/18 14:22 Last Admin: 12/17/18 14:47 Dose: 100 ml Ketorolac Tromethamine (Toradol) Confirm Administered Dose 30 mg .ROUTE .STK- MED ONE Stop: 12/17/18 16:03 Last Admin: 12/17/18 16:08 Dose: Not Given Ketorolac Tromethamine (Toradol) 30 mg IVPUSH ONETIME ONE Stop: 12/17/18 16:05 Last Admin: 12/17/18 16:07 Dose: 30 mg Morphine Sulfate (Morphine) 2 mg IVPUSH ONETIME ONE Stop: 12/17/18 14:01 Last Admin: 12/17/18 14:17 Dose: 2 mg Morphine Sulfate (Morphine) 4 mg IVPUSH ONETIME ONE Stop: 12/17/18 15:56 Last Admin: 12/17/18 15:59 Dose: 4 mg Morphine Sulfate (Morphine) Confirm Administered Dose 4 mg .ROUTE .STK-MED ONE Stop: 12/17/18 15:56 Last Admin: 12/17/18 16:00 Dose: Not Given Non-Formulary Medication (Ranitidine Hcl) 150 mg PO BID [facility] Last Admin: 12/17/18 23:09 Dose: Not Given Ondansetron HCl (Zofran) 4 mg IVPUSH ONETIME ONE Stop: 12/17/18 14:01 Last Admin: 12/17/18 14:13 Dose: 4 mg
== END 2018-12-18 15:10 | disposition home or self-care (01) ==
LOC: MW.ED 12:46 → MW.MS 16:43
PROVIDERS: ADMIT Internal Medicine; ATTEND Internal Medicine
DX: M54.5 Low back pain (principal); M06.9 Rheumatoid arthritis, unspecified; E11.9 Type 2 diabetes mellitus without complications; I10 Essential (primary) hypertension; K21.9 Gastro-esophageal reflux disease without esophagitis; Z88.2 Allergy status to sulfonamides; Z88.1 Allergy status to other antibiotic agents
CPT/HCPCS: 36415; 71260; 74177; 80048; 80053; 81001; 82962; 83735; 84484; 85025; 85027; 85610; 93005; 96374; 96375; 96376; 99285; A9270; J1885; J2270; J2405; J8610; Q9967; 72128; 72128-26; 72131; 72131-26; 99284